=== PATIENT | female | born 1960 | race Caucasian/White ===

== ENCOUNTER 2018-09-04 22:27 | Emergency (ER) | payer MEDICAID, MEDICARE ==
[2018-09-04] MEDS ORDERED: IBUPROFEN 800 MG TABLET PO STA (23:30)
[2018-09-04] MEDS ORDERED: CHERRY SYRUP 10 ML UDC PO ONE (23:31)
[2018-09-04] MEDS ORDERED: DEXAMETHASONE 10 MG/ML VIAL PO STA (23:31)
--- NOTE | 2018-09-04 23:33 | ED Physician Documentation ---
PD HPI HEENT - Stated complaint Stated Complaint: FEVER/HARD TO SWOLLOW - Chief complaint Chief Complaint: Heent - History obtained from History obtained from: Patient - History of Present Illness Timing - onset: How many days ago (9) Timing - details: Still present Location: Right ear, Left ear, Throat Worsens: Swalllowing Associated symptoms: Fever, Swollen nodes, Cough Similar symptoms before: Has not had sx before - Additional information Additional information: The patient is a 58-year-old female who complains of sore throat that started 9 days ago and has become worse over the past few days. She also complains of bilateral earaches, headache, fever, and nonproductive cough. She denies abdominal pain, nausea or vomiting. She denies history of similar symptoms in the past. Review of Systems Constitutional: reports: Fever Eyes: reports: Discharge Ears: reports: Ear pain Nose: reports: Congestion Throat: reports: Sore throat Cardiac: denies: Chest pain / pressure Respiratory: reports: Cough. denies: Dyspnea GI: denies: Abdominal Pain, Nausea, Vomiting : denies: Dysuria Skin: denies: Rash Musculoskeletal: denies: Back pain Neurologic: reports: Headache. 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, Other - Present Medications Home Medications: Ambulatory Orders Medication Instructions Recorded Confirmed Acyclovir 1 tab PO DAILY 09/04/18 09/04/18 Citalopram [CeleXA] 09/04/18 buPROPion [Wellbutrin Sr] 09/04/18 - Allergies Allergies/Adverse Reactions: Allergies Allergy/AdvReac Type Severity Reaction Status Date / Time No Known Drug Allergies Allergy Verified 09/04/18 22:48 - Social History Does the pt smoke?: No Smoking Status: Never smoker Does the pt drink ETOH?: No Does the pt have substance abuse?: No Substance Use and Type: Marijuana - Immunizations Immunizations are current?: No PD ED PE NORMAL - Vitals Vital signs reviewed: Yes (Initially hypertensive.) - General General: Alert and oriented X 3, Well developed/nourished - HEENT HEENT: Atraumatic, Moist mucous membranes, Other (Oropharynx is erythematous without exudates or peritonsillar swelling. There is scant fluid behind both tympanic membranes.) - Neck Neck: Supple, no meningeal sign, Other (Enlarged anterior cervical nodes bilaterally.) - Cardiac Cardiac: RRR - Respiratory Respiratory: No respiratory distress, Clear bilaterally - Abdomen Abdomen: Soft, Non tender - Back Back: No CVA TTP - Derm Derm: No rash - Extremities Extremities: No edema, No calf tenderness / cord - Neuro Neuro: Alert and oriented X 3, No motor deficit, No sensory deficit Results - Vitals Vitals: Vital Signs - 24 hr 09/04/18 22:44 Temperature 36.8 C Heart Rate 82 Respiratory 17 Rate Blood Pressure 153/92 H O2 Saturation 99 Oxygen O2 Source Room air - Labs Labs: Laboratory Tests 09/04/18 09/05/18 23:20 00:01 Infectious [place] Assay NEGATIVE Group A Strep Rapid Negative PD MEDICAL DECISION MAKING - ED course Complexity details: reviewed results, re-evaluated patient, considered differential, d/w patient ED course: The patient's presentation is most consistent with viral pharyngitis. Her rapid strep screen is negative, and Monospot is negative. There is no clinical evidence to suggest peritonsillar abscess. Treatment in the emergency department included administration of ibuprofen 800 mg orally and dexamethasone 10 mg orally. On reevaluation she reports feeling subjectively improved. I discussed with her the diagnosis, expected course of illness, symptomatic treatment and outpatient follow-up, as well as potentially worrisome signs or symptoms that should prompt reevaluation in the emergency department. Departure - Departure Disposition: 01 Home, Self Care Clinical Impression: Acute viral pharyngitis Condition: Stable Instructions: ED Pharyngitis Viral Comments: You can use ibuprofen, up to 800 mg 3 times daily for anti-inflammatory effect. Gargle with cool liquids. Follow-up with primary physician within 2 weeks if possible. Call to schedule an appointment. Return to the emergency department if you develop increasing difficulty swallowing, or otherwise worsening symptoms.
[2018-09-05 00:47] VITALS: BP 151/92
== END 2018-09-05 00:47 | disposition home or self-care (01) ==
LOC: ED 22:27
DX: J02.8 Acute pharyngitis due to other specified organisms (principal); B97.89 Other viral agents as the cause of diseases classified elsewhere
CPT/HCPCS: 36415; 86308; 87070; 87430; 99282; 99283; A9270

== ENCOUNTER 2018-12-30 15:24 | Emergency (ER) | payer MEDICARE, MEDICAID ==
--- NOTE | 2018-12-30 16:01 | XRAY Report ---
Reason: Trauma Procedure Date: 12/30/2018 Accession Number: [id number] / [id number] Procedure: XR - Wrist 4 View LT CPT Code: FULL RESULT: EXAM: LEFT WRIST RADIOGRAPHY EXAM DATE: 12/30/2018 03:53 PM. CLINICAL HISTORY: Trauma. COMPARISON: None. TECHNIQUE: 4 views. FINDINGS: Bones: There is a fracture of the distal radial metaphysis. Fracture demonstrates 18 degrees of angulation. Joints: No dislocation. There is mild widening of the scapholunate joint space. Soft Tissues: Normal. No soft tissue swelling. IMPRESSION: Distal radius fracture with 18 degrees of angulation. RADIA
[2018-12-30] MEDS ORDERED: KETAMINE 500 MG/10 ML VIAL IVP STA (16:23)
[2018-12-30] MEDS ORDERED: KETOROLAC 30 MG/ML VIAL IVP STA (16:23)
--- NOTE | 2018-12-30 19:23 | ED Physician Documentation ---
PD HPI UPPER EXT INJURY - Stated complaint Stated Complaint: L ARM INJURY - Chief complaint Chief Complaint: Ext Problem - History obtained from History obtained from: Patient - History of Present Illness Location: Left, Wrist Type of injury: Fall (from a horse onto her L wrist) Where injury occurred: Home Timing - onset: Today Timing - duration: Hours (2) Timing - details: Abrupt onset Severity Comments: moderate L wrist pain Worsened by: Moving, Palpating Associated symptoms: Swelling. No: Weakness, Numbness, Tingling, Discolored Contributing factors: No: Anticoagulated, Prior ortho surgery, Work related Similar symptoms before: Has not had sx before Recently seen: Not recently seen - Treatment prior to arrival Treatment prior to arrival: none - Additonal information Additional information: The horse bit her in the L upper arm when it bucked her but did not break any skin Review of Systems Ten Systems: 10 systems reviewed and negative Constitutional: denies: Fever Cardiac: denies: Chest pain / pressure Respiratory: denies: Dyspnea GI: denies: Abdominal Pain, Nausea, Vomiting Musculoskeletal: reports: Joint pain, Joint swelling. 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, Other - Present Medications Home Medications: Ambulatory Orders Medication Instructions Recorded Confirmed Acyclovir 1 tab PO DAILY 09/04/18 09/04/18 buPROPion [Wellbutrin Sr] 09/04/18 Fluoxetine HCl [Prozac] 10 mg PO 12/30/18 Oxycodone HCl/Acetaminophen 1 - 2 each PO Q6H PRN #6 tablet 12/30/18 [Percocet 5-325 mg Tablet] - Allergies Allergies/Adverse Reactions: Allergies Allergy/AdvReac Type Severity Reaction Status Date / Time No Known Drug Allergies Allergy Verified 12/30/18 15:39 - Social History Does the pt smoke?: No Smoking Status: Never smoker Does the pt drink ETOH?: No Does the pt have substance abuse?: No - Immunizations Immunizations are current?: No PD ED PE NORMAL - Vitals Vital signs reviewed: Yes - General General: Alert and oriented X 3, No acute distress, Well developed/nourished - HEENT HEENT: Atraumatic - Neck Neck: No JVD - Cardiac Cardiac: RRR - Respiratory Respiratory: No respiratory distress - Abdomen Abdomen: Non distended - Female Female : Deferred - Rectal Rectal: Deferred - Derm Derm: Other (ecchymosis to L upper arm, swelling of L wrist ) - Neuro Neuro: Alert and oriented X 3, No motor deficit, No sensory deficit, Normal speech Eye Opening: Spontaneous Motor: Obeys Commands Verbal: Oriented GCS Score: 15 - Psych Psych: Normal mood, Normal affect PD ED PE EXPANDED - Extremities Extremities: Deformity (of L wrist ), Tenderness, Swelling, Left wrist (The L upper arm is bruised but nontender and with a nontender elbow. She has full ROM of the upper arm and elbow and forearm with no tenderness. ), Motor intact, Sensory intact, Vascular intact. No: Limited ROM Results - Vitals Vitals: Vital Signs - 24 hr 12/30/18 12/30/18 12/30/18 15:37 18:38 18:42 Temperature 37.1 C Heart Rate 94 87 82 Respiratory 16 19 10 L Rate Blood Pressure 141/102 H 165/101 H 179/115 H O2 Saturation 100 100 100 12/30/18 12/30/18 12/30/18 18:44 18:47 18:52 Temperature Heart Rate 97 106 H 105 H Respiratory 18 24 11 L Rate Blood Pressure 225/130 H 221/125 H 196/111 H O2 Saturation 100 100 100 12/30/18 12/30/18 12/30/18 18:57 18:59 19:02 Temperature Heart Rate 107 H 103 H 94 Respiratory 16 18 11 L Rate Blood Pressure 185/109 H 195/101 H O2 Saturation 100 98 12/30/18 12/30/18 12/30/18 19:27 19:45 20:10 Temperature Heart Rate 85 86 86 Respiratory 14 13 18 Rate Blood Pressure 181/96 H 169/99 H 168/85 H O2 Saturation 100 100 100 Oxygen O2 Source Room air - Rads (name of study) L wrist Radiology: Final report received, EMP read contemporaneously, See rad report (L distal radius fracture with significant angulation) L wrist post reduction Radiology: EMP read indepedently (Improved alignment of L distal radius fracture with some displacement) Procedures - Splint (location) Upper extremity left Splint applied by: Physician, Tech Type of splint: Fiberglass, Volar cock up Other: Patient tolerated well, No complications, Neurovascular intact, Good alignment - Reduction Body part reduced: Left, Wrist Fracture or dislocation: Fracture (angulated) Anesthesia: Conscious sedation (ketamine) Reduction aftercare: NV intact, Alignment improved, Splint applied (volar splint), Patient tolerated well - Procedural sedation Sedation prep: Informed consent, Time out completed, Last meal (11am), PE performed, AHA 1 - healthy Sedation medications: ketamine (200mg) Patient status during sedation: Drowsy, Responds to tactile, Vitals remained stable (mild tachycardia and hypertension), Maintained airway, Recovered uneventfully. No: Respiratory depression, Hypoxia, Needed resp assistance, Complications Sedation recovery: Recovered uneventfully, Back to baseline Time in sedation (Minutes): 20 PD MEDICAL DECISION MAKING - ED course Complexity details: reviewed results, re-evaluated patient, considered differential, d/w patient, d/w family ED course: ddx abrasions, contusion, wrist fracture, dislocation 58 y/o F with hx and exam as documented. Isolated pain to L wrist wtih deformity. She was bit on the L arm by the horse but has no broken skin, a bruise is present. Neurovascularly intact but with an angulated distal radius fracture of L wrist. Consented for procedural sedation to attempt closed reduction with ketamine sedation as documented. Reduced with improved angulation and placed in a volar splint. Advised pt and family regarding analgesics, splint care and followup. Discussed return precautions in case of numbness, weakness, or worsening pain which could be signs of compartment syndrome. Pt is stable for outpt f/u with Orthopedics. Departure - Departure Disposition: 01 Home, Self Care Clinical Impression: Fracture of left distal radius Qualifiers: Encounter type: initial encounter Fracture type: closed Fracture morphology: unspecified fracture morphology Qualified Code(s): S52.502A - Unspecified fracture of the lower end of left radius, initial encounter for closed fracture Condition: Stable Instructions: ED Fx Colles Wrist Redu Requ, ED Sedation Procedural Discon Follow-Up: Phuc Mcneil MD [Provider Admit Priv/Credential] - Within 1 week Prescriptions: Oxycodone HCl/Acetaminophen [Percocet 5-325 mg Tablet] 1 - 2 each PO Q6H PRN #6 tablet PRN Reason: pain Discharge Date/Time: 12/30/18 20:22
--- NOTE | 2018-12-30 20:08 | XRAY Report ---
Reason: left wrist fx status post reduction Procedure Date: 12/30/2018 Accession Number: [id number] / [id number] Procedure: XR - Wrist 2 View LT CPT Code: FULL RESULT: EXAM: LEFT WRIST RADIOGRAPHY EXAM DATE: 12/30/2018 07:17 PM. CLINICAL HISTORY: Left wrist fx status post reduction. COMPARISON: WRIST 4 VIEW LT 12/30/2018 3:46 PM. TECHNIQUE: 2 views. FINDINGS: Bones: There is a distal radius fracture which appears in neutral position post reduction. Joints: No dislocation. Soft Tissues: A splint has been applied. IMPRESSION: Neutral position of distal radius fracture post reduction and splinting. RADIA
[2018-12-30 20:10] VITALS: BP 168/85
== END 2018-12-30 20:22 | disposition home or self-care (01) ==
LOC: ED 15:24
DX: S52.502A Unspecified fracture of the lower end of left radius, initial encounter for closed fracture (principal); V80.010A Animal-rider injured by fall from or being thrown from horse in noncollision accident, initial encounter; S40.022A Contusion of left upper arm, initial encounter; W55.11XA Bitten by horse, initial encounter; Y93.52 Activity, horseback riding; Y92.009 Unspecified place in unspecified non-institutional (private) residence as the place of occurrence of the external cause
CPT/HCPCS: 25605; 94770; 96374; 99152; 99283

== ENCOUNTER 2019-01-16 15:58 | Outpatient (CLI) | payer MEDICARE, MEDICAID ==
--- NOTE | 2019-01-17 08:32 | XRAY Report ---
Reason: FX Procedure Date: 01/17/2019 Accession Number: [id number] / [id number] Procedure: WOS - Wrist 2 View LT CPT Code: FULL RESULT: EXAM: LEFT WRIST RADIOGRAPHY EXAM DATE: 01/17/2019 07:55 AM. CLINICAL HISTORY: Fracture. COMPARISON: WRIST 3 VIEW LT 01/03/2019 4:05 PM. TECHNIQUE: 3 views. FINDINGS: Wrist in a cast. Subchondral sclerotic changes at the distal radial metaphysis, consistent with healing fracture. No significant change in alignment. IMPRESSION: Healing distal radial fracture. RADIA
[2019-01-18] MEDS ORDERED: CEFAZOLIN SODIUM IN 0.9 % NACL 2 GM/100 ML BAG IV ONE (07:21)
[2019-01-18] MEDS ORDERED: BUPIVACAINE 0.25% PF 30 ML VIAL ONE (11:29)
[2019-01-18] MEDS ORDERED: ROPIVACAINE 0.5% PF 20 ML VIAL ONE (11:55)
== END 2019-01-16 23:59 | disposition home or self-care (01) ==
LOC: DI.WOS 15:58
PROVIDERS: ATTEND Orthopaedic Surgery Sports Medicine
DX: S52.572D Other intraarticular fracture of lower end of left radius, subsequent encounter for closed fracture with routine healing (principal)

== ENCOUNTER 2019-01-17 14:07 | Outpatient (CLI) | payer MEDICARE, MEDICAID ==
[2019-01-17 14:47] LABS: BASOPHILS # (AUTO) 0.1 10^3/uL (0.0-0.1); BASOPHILS % (AUTO) 0.6 %; EOSINOPHILS # (AUTO) 0.2 10^3/uL (0.0-0.7); EOSINOPHILS % (AUTO) 1.8 %; HGB - HEMOGLOBIN 13.9 g/dL (12.0-16.0); LYMPHOCYTES # (AUTO) 2.3 10^3/uL (1.5-3.5); LYMPHOCYTES % (AUTO) 27.1 %; MEAN CORPUSCULAR HEMOGLOBIN 29.8 pg (27.0-31.0); MEAN CORPUSCULAR HGB CONC 31.7 g/dL (32.0-36.0); MEAN PLATELET VOLUME 9.1 fL (7.9-10.8); MONOCYTES # (AUTO) 0.6 10^3/uL (0.0-1.0); MONOCYTES % (AUTO) 6.5 %; NEUTROPHILS # (AUTO) 5.3 10^3/uL (1.5-6.6); NEUTROPHILS % (AUTO) 63.5 %; PLT - PLATELET COUNT 289 10^3/uL (130-450); RED BLOOD COUNT 4.66 10^6/uL (4.20-5.40); RED CELL DISTRIBUTION WIDTH 12.6 % (12.0-15.0); WHITE BLOOD COUNT 8.4 x10^3/uL (4.8-10.8)
[2019-01-17 15:06] LABS: ALBUMIN/GLOBULIN RATIO 1.3 (1.0-2.2); BILIRUBIN,TOTAL 0.7 mg/dL (0.2-1.0); CALCIUM 9.3 mg/dL (8.5-10.3); CREATININE 0.8 mg/dL (0.4-1.0); TOTAL PROTEIN 7.2 g/dL (6.7-8.2)
== END 2019-01-17 14:08 | disposition home or self-care (01) ==
LOC: LAB 14:07
PROVIDERS: ATTEND Orthopaedic Surgery Sports Medicine
DX: Z01.818 Encounter for other preprocedural examination (principal); Z79.899 Other long term (current) drug therapy; S52.572A Other intraarticular fracture of lower end of left radius, initial encounter for closed fracture; S52.502A Unspecified fracture of the lower end of left radius, initial encounter for closed fracture; S52.599A Other fractures of lower end of unspecified radius, initial encounter for closed fracture
CPT/HCPCS: 36415; 80053; 85025; 93005

== ENCOUNTER 2019-01-18 11:23 | Day surgery (SDC) | payer MEDICARE, MEDICAID ==
[2019-01-18] MEDS ORDERED: LACTATED RINGERS 1,000 ML IV ONE (11:31)
--- NOTE | 2019-01-18 11:53 | ANESTHESIA ---
Pre-Anesthesia VS, & Labs - Diagnosis L wrist fx - Procedure L wrist ORIF Vital Signs: Temp Pulse Resp BP Pulse Ox 36.2 C L 84 12 162/98 H 97 01/18/19 11:31 01/18/19 11:31 01/18/19 11:31 01/18/19 11:31 01/18/19 11:31 Height 5 ft 5 in Weight (kg) 89 kg Body Mass Index 32.5 - NPO >8 hours - Is Patient ?: No - Lab Results Lab results reviewed: Yes Home Medications and Allergies Home Medications: Ambulatory Orders Aspirin 325 mg PO DAILY 01/18/19 Acyclovir 1 tab PO BID 09/04/18 buPROPion [Wellbutrin Sr] 100 mg PO BID 09/04/18 Fluoxetine HCl [Prozac] 10 mg PO DAILY 12/30/18 Aspirin 325 mg PO DAILY 01/18/19 Allergies/Adverse Reactions: Allergies Allergy/AdvReac Type Severity Reaction Status Date / Time ketamine AdvReac Hallucinati Verified 01/17/19 13:43 ons Anes History & Medical History - Anesthetic History Anesthesia Complications: reports: No previous complications Family history of Anesthesia Complications: Denies Family history of Malignant Hyperthermia: Denies - Medical History Cardiovascular: reports: High cholesterol Pulmonary: reports: None Gastrointestinal: reports: Other Urinary: reports: None Musculoskeletal: reports: Other Endocrine/Autoimmune: reports: None Skin: reports: Other Smoking Status: Never smoker - Surgical History Gynecologic: Dilation and currettage, Other Exam General: Alert, Oriented x3, Cooperative Dental: WNL Mouth Openin Fingerbreadth Neck Mobility: Normal Mallampati classification: II Thyromental Distance: 4-6 cm Respiratory: Lungs clear, Normal breath sounds Cardiovascular: Regular rate Neurological: Normal speech Mental/Cognitive Status: Alert/Oriented X3, Normal for patient Cognitive Status: Within normal limits Plan Anesthesia Type: General, Supraclavicular Block Regional Block: Per Surgeon's request for Post Op pain control Consent for Procedure(s) Verified and Reviewed: Yes Code Status: Attempt Resuscitation ASA classification: 2-Mild systemic disease Is this case an emergency?: No
[2019-01-18] MEDS ORDERED: oxyCODONE 5 MG TABLET PO PRN (14:18)
[2019-01-18] MEDS ORDERED: ONDANSETRON 4 MG/2 ML VIAL IVP PRN (14:18)
--- NOTE | 2019-01-18 14:21 | IMMEDIATE POSTOPERATIVE NOTE ---
Immediate Postoperative Note - Procedure Note Procedure Date: 01/18/19 Pre-Op Diagnosis: Left distal radius fracture displaced Procedure: Left distal radius ORIF Post-Op Diagnosis: Same Primary Surgeon: Herminio Olivo Anesthesia Type: General LMA, Local, Regional block Findings: As above Complications: No complications Estimated Blood Loss (in cc): 25 Plan of Care: Patient tolerated procedure well instrument and sponge counts correct patient transferred to recovery room in stable condition
[2019-01-18 15:23] VITALS: BP 140/98
--- NOTE | 2019-01-18 16:53 | OPERATIVE REPORT ---
DATE OF SERVICE: 01/18/2019 Physician: Jasper Olivo MD PREOPERATIVE DIAGNOSIS: Left distal radius fracture. POSTOPERATIVE DIAGNOSIS: Left distal radius fracture. PROCEDURES 1. Left distal radius open reduction, internal fixation. 2. Left distal radius brachioradialis tenotomy. HISTORY OF PRESENT ILLNESS AND INDICATIONS: Patient is a 59-year-old female found to have a displace d distal radius fracture, left side. She had a reduction, though, had significant deformity, shorten ing, loss of radial height and loss of volar tilt, and was indicated for operative treatment. Please see previous clinical discussion for further risks, benefits and alternatives reviewed with patient. Patient was identified in the preoperative care unit and had risks, benefits and alternatives again highlighted and questions answered. She verbalized understanding of previous discussion. Questions were answered presently, and she verbalized her wish to proceed with operative treatment. INTRAOPERATIVE FINDINGS: The patient noted to have an extraarticular distal radius fracture with ape x volar angulation shortening and loss of radial height. There is some comminution at the fracture s ite, as well as some callous formation. There is deforming force of the brachioradialis, though, thi s is elevated and relieved. There is appropriate position of the distal radius fracture with restora tion of radial height, radial inclination and volar tilt post-reduction and fixation. Hardware was n oted to be extraarticular. Second cortex is captured with the more proximal screws, but with minimal penetration beyond that in the interest of avoiding iatrogenic injury or irritation to dorsal soft t issues. PROCEDURE: On 01/18/2019, patient identified the left wrist as the operative site. This was signed. She received preoperative weight-based IV antibiotics. She was given regional block anesthesia und er ultrasound guidance by anesthesia team. She was brought to the operating room. General anesthesi a was administered. Left upper extremity had a tourniquet placed high on the left arm, with well pad ding to avoid encumbrance to the axilla. The patient's left upper extremity then was pre-scrubbed wi th Hibiclens solution, alcohol,and then ChloraPrep and draped in the usual sterile fashion. At this time, tourniquet was used after exsanguination using an Esmarch bandage. At this time, after surgical pause identifies the left wrist, the patient's left wrist has incision w as made through skin, spreading dissection carried out to flexor carpi radialis tendon, sheath was in cised, extended proximally and distally. Tendon was retracted radially. Posterior aspect of the she ath incised and then spreading dissection carried out down to pronator quadratus, which was elevated in an L-shaped fashion over the distal end of the radius. Care was taken to avoid exuberant dissecti on into the joint. The first dorsal extensor compartment was identified and protected and given the deforming force of the brachioradialis was elevated. At this point, the fracture site was identified . Some callus was removed. A [place] was used to help free up the two fracture fragments. This area was curetted, copiously irrigated, and then recreation of the fracture deforming forces performed and then fracture reduction was performed, thereby improving height, inclination, and tilt. At this point, it was felt that the plate could be used also to facilitate reduction. As such, appro priate size plate was selected and using fluoroscopic image it was placed appropriately. The distal screws were fixed first with two nonlocking screws and then additional locking screws, all unicortica l in nature to avoid overpenetration dorsally or into the joint. Once this was fixed, then the fract ure was further reduced using the plate and the oval hole is filled using a nonlocking screw. At thi s point, after confirmation of appropriate reduction and hardware position, remaining holes in the pl ate are filled, such that there was greater than six cortices captured proximally and good fixation o n the distal aspect of the fracture. At this point, the joint was reexamined fluoroscopically and wa s noted to be free of any hardware. The DRUJ was likewise free of hardware. Screw length was adjust ed in one instance to avoid over penetration of the dorsal cortex. At this point, the wound was copi ously irrigated. The pronator quadratus was closed using 0 Vicryl, covering the plate, and then the skin was closed using 0 Vicryl and 2-0 Vicryl interrupted nylon sutures. Skin was washed and dried. Local anesthetic was infused superficially, 10 mL of 0.25% plain, and Xeroform dressing applied and dry sterile dressing applied. The patient was placed in a clamshell plaster splint. The patient tolerated the procedure well. Instrument and sponge counts were correct. The patient wa s transferred to recovery room in stable condition, and will follow standard postoperative left dista l radius ORIF protocol. She will be nonweightbearing on the left upper extremity. She will be encouraged to move digits. Sh e will ice and elevate. She will use sling and follow up in 10-14 days. She was given postoperative instructions. She denied any contraindication to medication plan, would use perioperative antibioti cs and analgesics as necessary. They will notify us prior to followup visit should problems, questio ns or worsening condition should arise. Postoperative instructions reviewed with the patient preoper atively and then provided in written form postoperatively. TD: 01/18/2019 15:49
== END 2019-01-18 11:24 | disposition home or self-care (01) ==
LOC: SDS 11:23
PROVIDERS: ATTEND Orthopaedic Surgery Sports Medicine
PROC: 0PSJ04Z Reposition Left Radius with Internal Fixation Device, Open Approach (ICD-10-PCS; principal; 2019-01-18 13:00)
DX: S52.552P Other extraarticular fracture of lower end of left radius, subsequent encounter for closed fracture with malunion (principal); E78.00 Pure hypercholesterolemia, unspecified; Z79.899 Other long term (current) drug therapy; Z79.82 Long term (current) use of aspirin
CPT/HCPCS: 25607; A9270; C1713; J7120

== ENCOUNTER 2019-01-19 12:18 | Emergency (ER) | payer MEDICARE, MEDICAID ==
[2019-01-19 12:32] VITALS: BP 139/73
--- NOTE | 2019-01-19 12:33 | ED Physician Documentation ---
History of Present Illness - Stated complaint Stated Complaint: LT ARM PX - POST SURGERY - Chief complaint Chief Complaint: Ext Problem - Additonal information Additional information: This is a 59-year-old female presents with left wrist pain. Patient had a distal radius fracture that had poor alignment, so she underwent ORIF with Dr. Villanueva yesterday. She had a nerve block at that time as well. Sounds like her nerve block wore off and she had significant pain, which was initially controlled with several oxycodone, but Now she took 3 of the oxycodone and was having significant pain so she decided to come in. She currently states the pain is moderate and feels a bit better than it did earlier. She denies any weakness or numbness. She is able to move her fingers. No fever. 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, Other - Present Medications Home Medications: Ambulatory Orders Medication Instructions Recorded Confirmed Acyclovir 1 tab PO BID 09/04/18 01/18/19 buPROPion [Wellbutrin Sr] 100 mg PO BID 09/04/18 01/18/19 Fluoxetine HCl [Prozac] 10 mg PO DAILY 12/30/18 01/18/19 Aspirin 325 mg PO DAILY 01/18/19 01/18/19 - Allergies Allergies/Adverse Reactions: Allergies Allergy/AdvReac Type Severity Reaction Status Date / Time ketamine AdvReac Hallucinati Verified 01/19/19 12:26 ons - Social History Does the pt smoke?: No Smoking Status: Never smoker Does the pt drink ETOH?: No Does the pt have substance abuse?: No - Immunizations Immunizations are current?: No PD ED PE NORMAL - Vitals Vital signs reviewed: Yes - General General: Alert and oriented X 3, No acute distress - HEENT HEENT: Atraumatic - Cardiac Cardiac: RRR - Respiratory Respiratory: No respiratory distress - Abdomen Abdomen: Other - Derm Derm: Warm and dry - Extremities Extremities: Other (Left wrist is in a plaster splint, patient is able to move all her fingers and sensation to light touch is intact over description of the median, ulnar, and radial nerves. There is no erythema. Splint is gently clamshell to open and the surgical incision site appears normal, there is no active bleeding, no erythema or purulent drainage. Splint put back in place and wrapped with soft wrap and then rewrapped with an [place] wrap over top of it.) - Neuro Neuro: Alert and oriented X 3 - Psych Psych: Normal mood, Normal affect Results - Vitals Vitals: Oxygen O2 Source Room air PD MEDICAL DECISION MAKING - ED course Complexity details: considered differential (Post-operative pain, hardward displacement, compartment syndrome, infection) ED course: Pt is well-appearing on exam, examination of her surgical site reveals a normal appearing site without signs of infection, the wrist appears in good alignment and she has not fallen or hit the arm since surgery. She is able to move her fingers and extremity is neurovascularly intact. No signs of compartment syndrome. I spoke with Dr. Mcneil who is option trader for orthopedics, and reviewed the case with him. He agrees with my assessment that patient is having post- operative pain and does not sound like she needs repeat imaging at this time. I discussed with patient parameters for pain management, close follow up with her orthopedist, and strict return precautions. Pt agrees and is feeling well at this time and was discharged home. Departure - Departure Disposition: 01 Home, Self Care Clinical Impression: Wrist pain, left Condition: Good Follow-Up: Jasper Olivo MD [Provider Admit Priv/Credential] - (Call for follow up in the next 1-2 weeks or sooner with non-improving symptoms) Comments: You were seen today for left wrist pain after surgery yesterday. I think this is likely postsurgical pain, and is not out of the realm of what we would expect. The surgical incision site looks good. Please take 650 mg of acetaminophen/Tylenol every 4-6 hours along with your oxycodone. If you need to take 15 mg (three 5mg tablets) Of oxycodone for the several days every 4-6 hours to better control your pain, this is okay, but please be aware this is a jd ting medication, so do not take it if you are feeling sleepy or prior to driving. It also is constipating, so please take stool softeners along with it. Taper down on your oxycodone use as soon as possible, because this medication builds tolerance and can lead to many complications if you are on it for extended periods of time. It is also very important to keep your arm elevated, as some of this pain is likely due to swelling. You may put ice over the splint 20 minutes at a time, this may help with the pain and swelling as well. It is also okay to take ibuprofen 600 mg every 6 hours as needed for pain, (some orthopedists feel that this may slow down bone healing, but if you really need it for pain over the next several days, it is very unlikely to cause any harm). If you are having worsening symptoms, fever, or signs of infection, return to the emergency department. Discharge Date/Time: 01/19/19 13:43
[2019-01-19] MEDS ORDERED: ACETAMINOPHEN 325 MG TABLET PO STA (12:51)
[2019-01-19] MEDS ORDERED: IBUPROFEN 600 MG TABLET PO STA (12:51)
== END 2019-01-19 13:43 | disposition home or self-care (01) ==
LOC: ED 12:18
DX: M25.532 Pain in left wrist (principal); Z98.890 Other specified postprocedural states
CPT/HCPCS: 99282; A9270

== ENCOUNTER 2022-09-05 08:00 | Outpatient (CLI) | payer MEDICARE, MEDICAID | END 2022-09-05 23:59 | disposition home or self-care (01) | LOC: LAB.N 08:00 | PROVIDERS: ATTEND Physician Assistant Medical | DX: M25.551 Pain in right hip (principal) | CPT/HCPCS: 87077; 87086 ==

== ENCOUNTER 2022-09-07 15:35 | Outpatient (CLI) | payer MEDICARE, MEDICAID ==
--- NOTE | 2022-09-07 19:45 | XRAY Report ---
PROCEDURE: Hips 2V BILAT INDICATIONS: PAIN IN RT HIP TECHNIQUE: 2 views of each hip were obtained COMPARISON: None. FINDINGS: Bones: No fractures or dislocations. No suspicious bony lesions. Moderate right hip joint space and narrowing. No significant marginal osteophyte or flattening of the femoral head. Left hip is unremar kable. Soft tissues: No suspicious soft tissue calcifications or masses. Left and port and tubing noted IMPRESSION: Moderate right hip joint space narrowing Reviewed by: Trell Booth MD on 09/07/2022 6:44 PM [facility] Approved by: Trell Booth MD on 09/07/2022 6:44 PM [facility] Station ID: [id number]
== END 2022-09-07 15:36 | disposition home or self-care (01) ==
LOC: DI 15:35
PROVIDERS: ATTEND Physician Assistant Medical
DX: M25.551 Pain in right hip (principal)